=== PATIENT | female | born 1975 | race Caucasian/White ===

== ENCOUNTER 2021-11-24 20:38 | Emergency (ER) | payer SELFPAY ==
[~2021-11-24] VITALS: Ht 162.6 cm; Wt 79.4 kg
[2021-11-24] MEDS ORDERED: DEXAMETHASONE SOD PHOS 10 MG/1 ML VIAL IM ONE (21:00)
[2021-11-24] MEDS ORDERED: MOMETASONE FURO15 G1 TOP (21:01)
[2021-11-24] MEDS ORDERED: DIPHENHYDRAMINE50 M1 PO (21:01)
[2021-11-24] MEDS ORDERED: DEXAMETHASONE SOD PHOS INJ 4 MG/ML SDV ONE (21:17)
== END 2021-11-24 21:29 | disposition home or self-care (01) ==
LOC: FSED 20:42
DX: L23.7 Allergic contact dermatitis due to plants, except food (principal); L29.9 Pruritus, unspecified
CPT/HCPCS: 99282; J1100

== ENCOUNTER 2022-04-08 14:34 | Emergency (ER) | payer OTHER ==
[~2022-04-08] VITALS: Ht 157.5 cm; Wt 77.6 kg
[~2022-04-08 14:34] MED LIST: DIPHENHYDRAMINE50 M1 PO; MOMETASONE FURO15 G1 TOP
== END 2022-04-08 16:40 | disposition home or self-care (01) ==
LOC: FSED 14:44
DX: S40.022A Contusion of left upper arm, initial encounter (principal); W01.0XXA Fall on same level from slipping, tripping and stumbling without subsequent striking against object, initial encounter; Y93.01 Activity, walking, marching and hiking; Y92.89 Other specified places as the place of occurrence of the external cause; F17.210 Nicotine dependence, cigarettes, uncomplicated
CPT/HCPCS: 99283

== ENCOUNTER 2022-09-15 11:03 | Emergency (ER) | payer SELFPAY ==
[~2022-09-15] VITALS: Ht 157.5 cm; Wt 77.6 kg
[2022-09-15] MEDS ORDERED: IBUPROFEN 600 MG TAB PO STA (11:26)
[2022-09-15] MEDS ORDERED: IBUPROFEN 600 MG TAB ONE (11:29)
[2022-09-15] MEDS ORDERED: PREDNISONE 20 MG TAB ONE (11:29)
[2022-09-15] MEDS ORDERED: CYCLOBENZAPRINE HCL 10 MG TAB ONE (11:29)
[2022-09-15] MEDS ORDERED: CYCLOBENZAPRINE HCL 10 MG TAB PO ONE (11:30)
[2022-09-15] MEDS ORDERED: PREDNISONE 20 MG TAB PO ONE (11:30)
[2022-09-15 12:12] LABS: CLARITY,URINE CLEAR (CLEAR); COLOR,URINE YELLOW (YELLOW); KETONES,URINE NEGATIVE (NEGATIVE); LEUKOCYTE ESTERASE ,URINE NEGATIVE (NEGATIVE); NITRITE,URINE NEGATIVE (NEGATIVE); PROTEIN,URINE DIPSTICK NEGATIVE (NEGATIVE); URINE UROBILINOGEN 0.2 mg/dL (0.2 - 1)
[2022-09-15 12:25] LABS: WBC,URINE (MAN) 0-5 /HPF (0-5)
[2022-09-15 12:26] LABS: BACTERIA,URINE FEW /HPF; EPITHELIAL CELLS,URINE MANY /LPF; RBC,URINE 0-5 /HPF (0-5)
[2022-09-15] MEDS ORDERED: IBUPROFEN600 MG PO (12:43)
[2022-09-15] MEDS ORDERED: CYCLOBENZAPRINE5 MG PO (12:43)
[2022-09-15] MEDS ORDERED: PREDNISONE50 MG PO (12:43)
== END 2022-09-15 12:55 | disposition home or self-care (01) ==
LOC: ER 11:06
DX: M62.838 Other muscle spasm (principal); V43.52XA Car driver injured in collision with other type car in traffic accident, initial encounter; Y92.488 Other paved roadways as the place of occurrence of the external cause
CPT/HCPCS: 81001; 99284; J7512

== ENCOUNTER 2022-09-26 12:40 | Emergency (ER) | payer OTHER ==
[~2022-09-26] VITALS: Ht 157.5 cm; Wt 77.6 kg
[~2022-09-26 12:40] MED LIST changes: +CYCLOBENZAPRINE5 MG PO; +IBUPROFEN600 MG PO; +PREDNISONE50 MG PO
[2022-09-26] MEDS ORDERED: KETOROLAC TROMETHAMINE 60 MG/2 ML VIAL IM ONE (13:30)
[2022-09-26] MEDS ORDERED: DEXAMETHASONE SOD PHOS 10 MG/1 ML VIAL IM ONE (13:30)
[2022-09-26] MEDS ORDERED: PREDNISONE20 MG PO (13:32)
[2022-09-26] MEDS ORDERED: CYCLOBENZAPRINE5 MG PO (13:33)
== END 2022-09-26 13:54 | disposition home or self-care (01) ==
LOC: ER 12:47
DX: M54.50 Low back pain, unspecified (principal); V89.2XXD Person injured in unspecified motor-vehicle accident, traffic, subsequent encounter; F17.210 Nicotine dependence, cigarettes, uncomplicated
CPT/HCPCS: 99282; J1100; J1885